=== PATIENT | female | born 1955 | race Caucasian/White ===

== ENCOUNTER 2024-07-05 19:39 | Emergency (ER) | payer MEDICARE, SELFPAY ==
[2024-07-05 19:40] VITALS: BP 136/60; PULSE 64; RESP 16; TEMP 36.9; O2SAT 97; BMI 27.9
--- NOTE | 2024-07-05 19:42 | XRR_ITS ---
PROCEDURE INFORMATION: Exam: XR Chest Exam date and time: 07/05/2024 7:59 PM Age: 69 years old Clinical indication: Other: Sepsis; Additional info: Possible sepsis TECHNIQUE: Imaging protocol: Radiologic exam of the chest. Views: 1 view. COMPARISON: No relevant prior studies available. FINDINGS: Lungs: Unremarkable. No consolidation. Pleural spaces: Unremarkable. No pleural effusion. No pneumothorax. Heart/Mediastinum: Unremarkable. No cardiomegaly. Bones/joints: Mild bilateral shoulder degenerative osteoarthritis. No acute osseous abnormality. XR/XR chest 1V portable [id number] IMPRESSION: No visualized acute cardiopulmonary process.
--- NOTE | 2024-07-05 19:45 | ECG_ITS ---
[facility] Test Date: 2024-07-05 Pat Name: Ji Maldonado Department: Room: Gender: Female [employer] Professor: : 1955 Requested By: Cindy Loza Order Number: [id number] Reading MD: Measurements Intervals [place] Rate: 59 P: 126 OR: 133 QRS: 45 QRSD: 102 T: 60 QT: 432 QTc: 430 Interpretive Statements SINUS BRADYCARDIA No previous ECG available for comparison [email or web address]
--- NOTE | 2024-07-05 19:47 | PC.NURSE ---
Pt unable to answer suicidal assessment questions due to dementia.
--- NOTE | 2024-07-05 19:47 | W.ED.WEAKNES ---
HPI - Weakness General: Chief complaint: Weakness Stated complaint: WEAKNESS Time Seen by Provider: 07/05/24 19:40 History of Present Illness: 69-year-old female with a history of advanced dementia who is on hospice and has a wound on her left breast who presents emergency room from senior care with concerns for sepsis. Apparently the hospice nurse requested she come. They had reported the temp of 100.6 there. On presentation here she is afebrile and vitals are normal. Her only pain complaint is of that left breast. This has a very large chronic appearing wound that is packed. No current drainage. No erythema. Review of Systems Narrative: Constitutional symptoms: Negative except as documented in HPI. Skin symptoms: Negative except as documented in HPI. Eye symptoms: Negative except as documented in HPI. ENMT symptoms: Negative except as documented in HPI. Respiratory symptoms: Negative except as documented in HPI. Cardiovascular symptoms: Negative except as documented in HPI. Gastrointestinal symptoms: Negative except as documented in HPI. Genitourinary symptoms: Negative except as documented in HPI. Musculoskeletal symptoms: Negative except as documented in HPI. Neurologic symptoms: Negative except as documented in HPI. Psychiatric symptoms: Negative except as documented in HPI. Endocrine symptoms: Negative except as documented in HPI. Physical Exam Narrative: EXAM NARRATIVE: General: Alert, no acute distress. Skin: Warm, dry. Patient has a very large wound at the crease of the base of the left breast. This stretches the entire breast. This is dressed. Dressing was removed and she has a large amount of packing which appears fairly clean. Head: Normocephalic, atraumatic. Neck: Supple, trachea midline. Eye: Extraocular movements are intact. Ears, nose, mouth and throat: mucosa moist. Cardiovascular: Regular, Normal peripheral perfusion. Respiratory: Lungs are clear to auscultation, respirations are non-labored, breath sounds are equal, Symmetrical chest wall expansion. Gastrointestinal: Soft, Nontender, Non distended Musculoskeletal: Normal ROM, no deformity. Neurological: Alert and oriented, No focal neurological deficit observed. Psychiatric: Cooperative, appropriate mood & affect. Course Vital Signs: Vital signs: Vital Signs Temperature 98.5 F 07/05/24 19:40 Pulse Rate 59 L 07/05/24 20:28 Respiratory Rate 16 07/05/24 20:28 Blood Pressure 136/60 07/05/24 20:28 Pulse Oximetry 99 07/05/24 20:28 Oxygen Delivery Me thod Room Air 07/05/24 20:28 MDM - Weakness Medical Decision Making Medical decision making: Differential diagnosis including but not limited to and based on the above HPI, review of systems and physical exam: This patient is a hospice patient was sent to evaluate for sepsis so blood cultures, lab work was done. Orders placed to evaluate differential diagnosis based on the above differential, HPI and physical exam EKG: Time 2034. Rate 59. Normal sinus rhythm, No ST-T changes, no ectopy, normal [place] & QRS intervals, This was reviewed and interpreted by myself the ER physician at 2039. Chest x-ray: No acute process. No infiltrate. No pneumothorax. This was reviewed and interpreted by myself the emergency room physician. I also reviewed the radiology report. Lab Review: Laboratory results were reviewed and interpreted by myself the emergency room physician. No leukocytosis. No anemia. BUN is a bit elevated at 29 with a normal creatinine of 0.6. I do not have any previous lab work to compare to but open give some fluids because she might be a bit dehydrated. I reviewed the patient's medical record. Reexamination: Patient remained stable. No increased work of breathing. No altered mental status. No focal motor deficits. Assessment and plan: Breast abscess ? Cefepime and fluids in the emergency room. No signs of sepsis. - Discharged home - Discussed plan with patient. Answered any questions. - Evaluation and treatment of this problem were appropriate in the emergency setting. Lab Data 07/05/24 19:57 07/05/24 19:57 Radiology Impressions Chest X-Ray 07/05/24 19:42 IMPRESSION: No visualized acute cardiopulmonary process. Laboratory Results WBC 7.56 10^3/uL (3.29-11.43) 07/05/24 19:57 RBC 4.33 10^6/uL (3.85-5.65) 07/05/24 19:57 Hgb 11.60 g/dL (11.27-16.99) 07/05/24 19:57 Hct 37.5 % (36-47) 07/05/24 19:57 MCV 86.6 fl (85-98) 07/05/24 19:57 MCH 26.8 pg (27-33) L 07/05/24 19:57 MCHC 30.9 g/dL (30-55) 07/05/24 19:57 RDW 15.2 % (12.1-15.1) H 07/05/24 19:57 Plt Count 394 10^3/cmm (157-399) 07/05/24 19:57 MPV 9.4 fL (7.4-10.4) 07/05/24 19:57 Neut % (Auto) 70.8 % 07/05/24 19:57 Lymph % (Auto) 19.8 % 07/05/24 19:57 Benzie % (Auto) 7.4 % 07/05/24 19:57 Eos % (Auto) 0.1 % 07/05/24 19:57 Baso % (Auto) 0.3 % 07/05/24 19:57 Neut # (Auto) 5.35 10^3/uL (1.8-7.7) 07/05/24 19:57 Lymph # (Auto) 1.5 10^3/uL (0.8-4.8) 07/05/24 19:57 Benzie # (Auto) 0.6 10^3/uL (0.2-0.9) 07/05/24 19:57 Eos # (Auto) 0.0 10^3/uL (0.0-0.8) 07/05/24 19:57 Baso # (Auto) 0.0 10^3/uL (0.0-0.1) 07/05/24 19:57 Nucleated RBC % (auto) 0 % 07/05/24 19:57 Nucleated RBCs # 0.0 /100WBC 07/05/24 19:57 Sodium 135 mmol/L (136-145) L 07/05/24 19:57 Potassium 3.4 mmol/L (3.5-5.1) L 07/05/24 19:57 Chloride 95 mmol/L (98-107) L 07/05/24 19:57 Carbon Dioxide 29 mmol/L (22-29) 07/05/24 19:57 Anion Gap 14.4 (5-19) 07/05/24 19:57 BUN 29 mg/dL (8-23) H 07/05/24 19:57 Creatinine 0.6 mg/dL (0.5-0.9) 07/05/24 19:57 GFR Calculation 99.7 mL/min (90-130) 07/05/24 19:57 Glucose 121 mg/dL (65-115) H 07/05/24 19:57 Calculated Osmolality 287 mOsm/kg (285-295) 07/05/24 19:57 Lactic Acid 0.6 mmol/L (0.5-2.2) 07/05/24 19:57 Calcium 9.5 mg/dL (8.5-10.5) 07/05/24 19:57 Total Bilirubin 0.2 mg/dL (0.15-1.2) 07/05/24 19:57 AST 15 U/L (0-32) 07/05/24 19:57 ALT 17 U/L (0-33) 07/05/24 19:57 Alkaline Phosphatase 69 U/L (35-105) 07/05/24 19:57 Total Protein 7.1 g/dL (6.6-8.7) 07/05/24 19:57 Albumin 3.9 g/dL (3.5-5.2) 07/05/24 19:57 Globulin 3.2 g/dL (1.3-4.6) 07/05/24 19:57 All radiology interpretation(s) finalized by discharge Discharge Plan Discharge Patient Disposition: Home Clinical Impression: Abscess of breast Condition: Stable Discharge Orders: Discharge ED (Routine); Ordered 07/05/24 Ordered By: Cindy Patterson Referrals: Ever Putnam MD [Physician, General Surgery] Referral Note: If this wound requires surgical management please call Dr. Putnam with general surgery. Discharge Diet: Usual diet Discharge Activity: Increase activity as tolerated Patient Instructions: Abscess Follow-up (ED), Opioid Safety, Pain Management Activity Restrictions/Additional Instructions: residential: Patient shows no signs of sepsis at this time. Wound appears appropriately packed and taken care of. No overt signs of cellulitis. No fever. No hypotension. Lab work is normal. Continue current antibiotic regimen. And wound care regimen. Thank you for choosing [facility] for your healthcare needs today. You have been screened and evaluated and felt safe for discharge. Health conditions do change or evolve sometimes and as such it is important that you follow up with your Primary Doctor to be re checked, 3-5 days is a general good time frame for follow up. You are always welcome to return to the ED for re assessment if your symptoms are worsening or you have new concerns Print Language: Romanian Coding Level of Care Code ED Silk Snapper for Mohsen Gandara
--- NOTE | 2024-07-05 19:49 | PC.NURSE ---
Aleisha with [facility] called and states patient has Left Breast Cancer of which she received Chemo and surgical revision of breast and has on going wound. She was started on Cephalaxin on 06/30. Daughter: Elida Maldonado,
[2024-07-05 20:04] LABS: Basophils % 0.3 %; Eosinophils % 0.1 %; Hematocrit 37.5 % (36-47); Lymphocytes # 1.5 10^3/uL (0.8-4.8); Lymphocytes % 19.8 %; Mean Corpuscular HGB Conc 30.9 g/dL (30-55); Mean Corpuscular Hemoglobin 26.8 pg (27-33); Mean Corpuscular Volume 86.6 fl (85-98); Mean Platelet Volume 9.4 fL (7.4-10.4); Monocytes # 0.6 10^3/uL (0.2-0.9); Monocytes % 7.4 %; Neutrophils # 5.35 10^3/uL (1.8-7.7); Neutrophils % 70.8 %; Nucleated Red Blood Cells % 0 %; Platelet Count 394 10^3/cmm (157-399); Red Blood Count 4.33 10^6/uL (3.85-5.65); Red Cell Distribution Width 15.2 % (12.1-15.1); White Blood Count 7.56 10^3/uL (3.29-11.43)
[2024-07-05 20:21] LABS: Alanine Aminotransferase 17 U/L (0-33); Albumin Level 3.9 g/dL (3.5-5.2); Alkaline Phosphatase 69 U/L (35-105); Anion Gap 14.4 (5-19); Aspartate Amino Transferase 15 U/L (0-32); Blood Urea Nitrogen 29 mg/dL (8-23); Calcium 9.5 mg/dL (8.5-10.5); Carbon Dioxide 29 mmol/L (22-29); Chloride 95 mmol/L (98-107); Creatinine Clr Calc Pharmacy 77.2656; Globulin 3.2 g/dL (1.3-4.6); Glomerular Filtration Rate 99.7 mL/min (90-130); Glucose 121 mg/dL (65-115); Osmolality Calculated 287 mOsm/kg (285-295); Potassium 3.4 mmol/L (3.5-5.1); Sodium 135 mmol/L (136-145); Total Bilirubin 0.2 mg/dL (0.15-1.2); Total Protein 7.1 g/dL (6.6-8.7)
[2024-07-05 20:22] LABS: Lactic Sepsis W/Reflex 0.6 mmol/L (0.5-2.2)
[2024-07-05 20:28] VITALS: BP 136/60; PULSE 59; RESP 16; O2SAT 99
[2024-07-05] MEDS: sodium chloride 0.9% 1,000 ML 999 ML IV (20:56)
[2024-07-05] MEDS: cefepime 2,000 mg SDV 2000 MG IVP (20:56)
[2024-07-05 21:04] VITALS: BP 157/70; PULSE 68; RESP 16; O2SAT 97
[2024-07-05 21:34] VITALS: BP 152/72; PULSE 62; RESP 16; O2SAT 98
[2024-07-05 22:02] VITALS: BP 139/61; PULSE 58; RESP 14; O2SAT 96
[2024-07-05 22:03] VITALS: BP 139/61; PULSE 58; RESP 14; O2SAT 96
== END 2024-07-05 22:28 | disposition home or self-care (01) ==
PROVIDERS: Emergency Provider Emergency Medicine; PCP Family Medicine
DX: N61.1 Abscess of the breast and nipple (principal); F03.90 Unspecified dementia, unspecified severity, without behavioral disturbance, psychotic disturbance, mood disturbance, and anxiety
CPT/HCPCS: 36415; 71045; 80053; 83605; 85025; 87040; 93005; 96374; 99285; J0692; J7030

== ENCOUNTER 2024-08-28 19:48 | Outpatient (CLI) | payer MEDICARE, SELFPAY ==
[2024-08-28 20:06] LABS: Glucose Urine UA Negative (Normal); Nitrate Urine Negative (Negative); Specific Gravity, Urine 1.025 (1.005-1.030)
[2024-08-28 20:11] LABS: Add Urine Microscopic? YES
[2024-08-28 20:26] LABS: UA Slide Review UA Slide Review Perf
== END 2024-08-28 19:49 | disposition home or self-care (01) ==
PROVIDERS: PCP Family Medicine; Visit Provider Family Medicine
DX: N39.0 Urinary tract infection, site not specified (principal)
CPT/HCPCS: 81001; 87086